=== PATIENT | female | born 1960 | race Caucasian/White ===

== ENCOUNTER → 2025-05-14 | Outpatient (CLI) | payer MEDICARE, SELFPAY ==
--- NOTE | 2025-05-14 17:40 | RAD_ITS ---
PROCEDURE: THORACIC SPINE 3 VIEWS 05/14/2025 REASON FOR EXAM: BACK PAIN, DDD TECHNIQUE: Procedure Code: RADSPT Modality: DX Procedure: THORACIC SPINE 3 VIEWS FINDINGS: No evidence of acute fracture or dislocation. Mild degenerative changes of visualized spine. Normal alignment. RAD/Thoracic Spine 3 Views IMPRESSION: Mild spondylosis. Reading Location: [id number]
--- NOTE | 2025-05-14 17:40 | RAD_ITS ---
PROCEDURE: LUMBAR SPINE 2 OR 3 VIEWS 05/14/2025 REASON FOR EXAM: BACK PAIN, DDD TECHNIQUE: Procedure Code: RADSPLL Modality: DX Procedure: LUMBAR SPINE 2 OR 3 VIEWS FINDINGS: No evidence of acute fracture or dislocation. Dextroscoliosis. [id number] degenerative changes of the visualized spine. Grade 1 anterolisthesis of L3 on L4. Vertebral body heights are maintained. RAD/Lumbar Spine 2 or 3 Views IMPRESSION: Scoliosis. Spondylosis. Spondylolisthesis. Reading Location: [id number]
[2025-05-14 18:15] LABS: Barbiturate Urine NEGATIVE (< 200 ng/mL); Benzodiazepine Urine PRESUMPTIVE POSITIVE (< 200 ng/mL); PCP Urine NEGATIVE (< 25 ng/mL); THC Urine PRESUMPTIVE POSITIVE (< 50 ng/mL)
== END | disposition home or self-care (01) ==
PROVIDERS: PCP Student in an Organized Health Care Education/Training Program; Referring Provider Anesthesiology Pain Medicine; Visit Provider Anesthesiology Pain Medicine
DX: F11.20 Opioid dependence, uncomplicated (principal); M51.34 Other intervertebral disc degeneration, thoracic region; M51.369 Other intervertebral disc degeneration, lumbar region without mention of lumbar back pain or lower extremity pain
CPT/HCPCS: 72072; 72100; 80307